=== PATIENT | female | born 1940 | race Caucasian/White ===

== ENCOUNTER 2017-03-12 07:55 | Day surgery (SDC) | payer MEDICAID ==
[~2017-03-12] VITALS: Ht 154 cm; Wt 83.0 kg
[2017-03-12] MEDS ORDERED: ATOR10TA PO (09:14)
[2017-03-12] MEDS ORDERED: COR3 PO (09:14)
[2017-03-12] MEDS ORDERED: OMEP20CA10 PO (09:14)
[2017-03-12] MEDS ORDERED: ASPI-1159 PO (09:14)
[2017-03-12] MEDS ORDERED: LOSA50TA20 PO (09:14)
[2017-03-12] MEDS ORDERED: LIDOCAINE HCL 1% 20ML VIAL (Pyxis) INJ ONE (09:58)
[2017-03-12] MEDS ORDERED: IOHEXOL-300 100 ML BOTTLE ONE (09:58)
[2017-03-12] MEDS ORDERED: FENTANYL CITRATE/PF 50MCG/ML 2ML VIAL ONE (10:03)
[2017-03-12] MEDS ORDERED: MIDAZOLAM HCL 2 MG/2 ML VIAL ONE (10:03)
[2017-03-12] MEDS ORDERED: HEPARIN SODIUM 1,000 UNIT/1ML VIAL IV ONE (10:49)
[2017-03-12] MEDS ORDERED: ACETAMINOPHEN 325MG TABLET PO PRN (11:30)
== END 2017-03-12 17:00 | disposition home or self-care (01) ==
LOC: CCL 07:55
PROVIDERS: ATTEND Specialist
DX: I35.0 Nonrheumatic aortic (valve) stenosis (principal); I11.9 Hypertensive heart disease without heart failure; E78.5 Hyperlipidemia, unspecified; Z88.0 Allergy status to penicillin; Z79.82 Long term (current) use of aspirin; Z79.899 Other long term (current) drug therapy
CPT/HCPCS: 93005; 93460; 99152; 99153; C1760; C1769; C1887; C1893; J1644; J2250; J3010; J3490; Q9967